=== PATIENT | female | born 1975 | race Caucasian/White ===

== ENCOUNTER 2018-03-25 10:20 | Inpatient (IN) | payer OTHER ==
[2018-03-25] MEDS ORDERED: CARBOPROST 250 MCG INJ IM (10:30)
[2018-03-25] MEDS ORDERED: OXYTOCIN 30 UNITS/LR 500 ML IV (10:30)
[2018-03-25] MEDS ORDERED: MISOPROSTOL 200 MCG TAB PR (10:30)
[2018-03-25] MEDS ORDERED: IBUPROFEN 600 MG TAB PO (10:30)
[2018-03-25] MEDS ORDERED: METHYLERGONOVINE 0.2 MG INJ IM (10:30)
[2018-03-25 11:04] LABS: ADD MAN DIFF? NO
[2018-03-25 11:06] LABS: WHITE BLOOD COUNT 8.3 10^3/ul (4.8-10.8)
[2018-03-25 11:06] LABS: ABNORMAL IP MESSAGE 1; BASOPHIL # 0.1 10^3/ul (0.0-0.1); BASOPHILS % 0.7 % (0.0-2.0); EOSINOPHILS # 0.2 10^3/ul (0.0-0.5); EOSINOPHILS % 2.5 % (0.0-7.0); HEMATOCRIT 38.5 % (37.0-47.0); LYMPHOCYTES # 1.8 10^3/ul (0.8-2.9); LYMPHOCYTES % 21.9 % (15.0-51.0); MEAN CORPUSCULAR HEMOGLOBIN 19.8 pg (29.0-33.0); MEAN CORPUSCULAR HGB CONC 31.2 g/dl (32.0-37.0); MEAN CORPUSCULAR VOLUME 63.6 fl (82.0-101.0); MONOCYTE # 0.8 10^3/ul (0.3-0.9); MONOCYTES % 9.4 % (0.0-11.0); NEUTROPHIL # 5.4 10^3/ul (1.6-7.5); NEUTROPHILS % 64.5 % (39.0-77.0); PLATELET COUNT 162 10^3/UL (140-415); RED BLOOD COUNT 6.05 10^6/ul (4.20-5.40); RED CELL DISTRIBUTION WIDTH 15.6 % (11.5-14.5)
[2018-03-25 11:10] LABS: POSITIVE DIFF @See below
[2018-03-25] MEDS: LACTATED RINGER'S 1,000 ML IV ×2 (11:10→19:10)
[2018-03-25 11:27] LABS: INR 0.86; PROTIME 11.8 Sec (11.9-14.9); PT RATIO 0.9
[2018-03-25 11:28] LABS: PARTIAL THROMBOPLASTIN TIME 28.6 Sec (23.0-35.0)
[2018-03-25 11:29] LABS: GLUCOSE 79 mg/dl (70-220)
[2018-03-25 12:06] LABS: HEPATITIS B SURFACE ANTIGEN NEGATIVE (NEGATIVE)
[2018-03-25] MEDS: MISOPROSTOL 50 MCG CAPSULE PO (15:00)
[2018-03-25 15:37] LABS: RAPID PLASMA REAGIN NONREACTIVE (NR)
[2018-03-25] MEDS: DEXTROSE 5%-LR 1,000 ML IV ×2 (19:10→19:48)
[2018-03-26] MEDS: MISOPROSTOL 50 MCG CAPSULE PO ×5 (00:59→21:30)
[2018-03-26] MEDS: DEXTROSE 5%-LR 1,000 ML IV ×2 (03:47→09:56)
[2018-03-26] MEDS: LACTATED RINGER'S 1,000 ML IV ×3 (03:48→16:35)
[2018-03-26] MEDS: BUTORPHANOL 2 MG INJ IV (09:58)
[2018-03-26] MEDS ORDERED: FENTAnyl 2MCG/ML-ROPIV 0.2% 100 ML (12:53)
[2018-03-26] MEDS ORDERED: NALOXONE (0.4 MG/ML) INJ IV (13:00)
[2018-03-26] MEDS ORDERED: FENTAnyl 2MCG/ML-ROPIV 0.2% 100 ML BAG EPI (13:00)
[2018-03-26] MEDS ORDERED: OXYCODONE/ASPIRIN (4.88/325) TAB PO (19:00)
[2018-03-26] MEDS ORDERED: MISOPROSTOL 200 MCG TAB PR (19:00)
[2018-03-26] MEDS ORDERED: NACL 0.9% 3 ML SYG IV (19:00)
[2018-03-26] MEDS ORDERED: ONDANSETRON 4 MG INJ IV (19:00)
[2018-03-26] MEDS ORDERED: SENNA/DOCUSATE NA (8.6MG/50MG) TAB PO (19:00)
[2018-03-26] MEDS ORDERED: CARBOPROST 250 MCG INJ IM (19:00)
[2018-03-26] MEDS ORDERED: METHYLERGONOVINE 0.2 MG INJ IM (19:00)
[2018-03-26] MEDS ORDERED: OXYTOCIN 30 UNITS/LR 500 ML IV (19:00)
[2018-03-26] MEDS: OXYTOCIN 30 UNITS/LR 500 ML IV ×2 (19:31→19:32)
[2018-03-26] MEDS: MINERAL OIL LIGHT 10 ML VIAL TOP (19:33)
[2018-03-26] MEDS: LIDOCAINE 1% (MPF) 30 ML INJ INJ (19:33)
[2018-03-26] MEDS ORDERED: ACCU-CHEK XX (19:35)
[2018-03-26] MEDS: SENNA/DOCUSATE NA (8.6MG/50MG) TAB PO (21:30)
[2018-03-26] MEDS: BENZOCAINE 20% 56 ML SPRAY TOP (23:59)
[2018-03-26] MEDS: IBUPROFEN 600 MG TAB PO (23:59)
[2018-03-26] MEDS: WITCH HAZEL/GLYCERIN PAD PR (23:59)
[2018-03-27] MEDS: LANOLIN HPA 1 PKT TOP
[2018-03-27] MEDS: OXYTOCIN 30 UNITS/LR 500 ML IV (00:28)
[2018-03-27] MEDS: IBUPROFEN 600 MG TAB PO ×4 (06:05→23:25)
[2018-03-27 07:05] LABS: ADD MAN DIFF? NO
[2018-03-27 07:11] LABS: WHITE BLOOD COUNT 13.9 10^3/ul (4.8-10.8)
[2018-03-27 07:11] LABS: ABNORMAL IP MESSAGE 1; BASOPHIL # 0.1 10^3/ul (0.0-0.1); BASOPHILS % 0.4 % (0.0-2.0); EOSINOPHILS # 0.1 10^3/ul (0.0-0.5); EOSINOPHILS % 0.5 % (0.0-7.0); HEMATOCRIT 33.3 % (37.0-47.0); HEMOGLOBIN 10.5 g/dl (12.0-16.0); LYMPHOCYTES # 2.2 10^3/ul (0.8-2.9); LYMPHOCYTES % 15.7 % (15.0-51.0); MEAN CORPUSCULAR HGB CONC 31.5 g/dl (32.0-37.0); MEAN CORPUSCULAR VOLUME 63.5 fl (82.0-101.0); MONOCYTES % 7.5 % (0.0-11.0); NEUTROPHIL # 10.5 10^3/ul (1.6-7.5); NEUTROPHILS % 75.3 % (39.0-77.0); PLATELET COUNT 148 10^3/UL (140-415); RED BLOOD COUNT 5.24 10^6/ul (4.20-5.40); RED CELL DISTRIBUTION WIDTH 15.7 % (11.5-14.5)
[2018-03-27 07:12] LABS: POSITIVE DIFF @See below
[2018-03-27] MEDS: SENNA/DOCUSATE NA (8.6MG/50MG) TAB PO ×2 (09:29→21:28)
[2018-03-28] MEDS: IBUPROFEN 600 MG TAB PO ×2 (05:38→12:08)
[2018-03-28] MEDS: SENNA/DOCUSATE NA (8.6MG/50MG) TAB PO (09:55)
[2018-03-28] MEDS: WITCH HAZEL/GLYCERIN PAD PR (15:48)
[2018-03-28] MEDS: BENZOCAINE 20% 56 ML SPRAY TOP (15:49)
[2018-03-28] MEDS: OXYCODONE/ASPIRIN (4.88/325) TAB PO (15:59)
== END 2018-03-28 17:28 | disposition home or self-care (01) | DRG 807 ==
LOC: L-D 10:20 → PP1 03-26 21:14
PROVIDERS: Obstetrics & Gynecology
PROC: 10E0XZZ Delivery of Products of Conception, External Approach (ICD-10-PCS; principal; 2018-03-25 09:30)
PROC: 0W8NXZZ Division of Female Perineum, External Approach (ICD-10-PCS; 2018-03-25 09:30)
DX: O24.429 Gestational diabetes mellitus in childbirth, unspecified control (principal); Z37.0 Single live birth; Z3A.39 39 weeks gestation of pregnancy
CPT/HCPCS: 62319; 76815; 82947; 82962; 85025; 85610; 85730; 86592; 86850; 86900; 86901; 87340; 90686; 99464